=== PATIENT | female | born 1995 | race Caucasian/White ===

== ENCOUNTER 2019-08-30 20:17 | Emergency (ER) | payer OTHER ==
[2019-08-30] MEDS ORDERED: Ondansetron INJ* 2 MG/ML VIAL IV ONE (20:47)
[2019-08-30] MEDS ORDERED: NS 0.9% 1000 ML** 2,000 ML IV ONE (20:47)
[2019-08-30] MEDS ORDERED: Acetaminophen TAB* 325 MG PO ONE (20:49)
--- NOTE | 2019-08-30 21:13 | ED ---
Syncope/Near Syncope - HPI Summary HPI Summary: Pt is a 24 y/o F presenting to the ED with a chief complaint of syncope. She states she has been having N/V/D (about 10 emesis episodes, 5 diarrhea episodes ) ever since she woke up this morning, accompanied by a high fever at one point. She had a syncopal episode, woke up, continued vomiting, then went to urgent care where she syncopized again. Pt denies any chills, erythema of eyes, sore throat, CP, SOB, cough, abdominal pain, blood in stool or vomit, dysuria, hematuria, myalgia, edema, rash, or dizziness. Hx GERD, gastritis, PCOS, Raynauds. - History Of Current Complaint Chief Complaint: EDSyncope Time Seen by Provider: 08/30/19 20:30 Hx Obtained From: Patient Onset/Duration: Sudden Onset, Lasting Minutes, Resolved Timing: Minutes Context: Unwitnessed, Witnessed, Loss Of Consciousness Activity At Onset: Other - vomiting Associated Head Trauma: No Aggravating Factor(s): Nothing Alleviating Factor(s): Nothing Associated Signs And Symptoms: Diarrhea, Vomiting - Allergies/Home Medications Allergies/Adverse Reactions: Allergies Allergy/AdvReac Type Severity Reaction Status Date / Time acetaminophen [From Vicodin] Allergy Itching Verified 08/30/19 21:27 cefprozil [From Cefzil] Allergy Hives/Diff. Verified 08/30/19 21:27 Breathing/I tching hydrocodone [From Vicodin] Allergy Itching Verified 08/30/19 21:27 Home Medications: Home Medications Tegretol 300 mg PO TID 08/30/19 [History Confirmed 08/30/19] PMH/Surg Hx/FS Hx/Imm Hx Previously Healthy: Yes Endocrine/Hematology History: Reports: Other Endocrine/Hematological Disorders - Raynaud's GI History: Reports: Hx Gastroesophageal Reflux Disease, Other GI Disorders - gastritis History: Reports: Other Problems/Disorders - PCOS Infectious Disease History: No Infectious Disease History: Denies: Traveled Outside the [place] in Last 30 Days - Family History Known Family History: Negative: Diabetes - Social History Occupation: Student Alcohol Use: Occasionally Hx Substance Use: No Substance Use Type: Reports: None Hx Tobacco Use: No Smoking Status (MU): Never Smoked Tobacco Review of Systems Positive: Fever. Negative: Chills Negative: Erythema Negative: Sore Throat Negative: Chest Pain Negative: Shortness Of Breath, Cough Positive: Vomiting, Diarrhea, Nausea. Negative: Abdominal Pain Negative: dysuria, hematuria Negative: Myalgia, Edema Negative: Rash Neurological: Negative - dizziness Positive: Syncope All Other Systems Reviewed And Are Negative: Yes Physical Exam - Summary Physical Exam Summary: Constitutional: Well-developed, Well-nourished, Alert. (-) Distressed Skin: Warm, Dry HENT: Normocephalic; Atraumatic Eyes: Conjunctiva normal Neck: Musculoskeletal ROM normal neck. (-) JVD, (-) Stridor, (-) Tracheal deviation Cardio: Rhythm regular, rate 102bpm, Heart sounds normal; Intact distal pulses; The pedal pulses are 2+ and symmetric. Radial pulses are 2+ and symmetric. (-) Murmur Pulmonary/Chest wall: Effort normal. (-) Respiratory distress, (-) Wheezes, (-) Rales Abd: Soft, (-) tenderness, (-) Distension, (-) Guarding, (-) Rebound Musculoskeletal: (-) Edema Lymph: (-) Cervical adenopathy Neuro: Alert, Oriented x3 Psych: Mood and affect Normal Triage Information Reviewed: Yes Vital Signs On Initial Exam: Initial Vitals Temp Pulse Resp BP Pulse Ox 99.9 F 100 16 102/55 99 08/30/19 20:21 08/30/19 20:21 08/30/19 20:21 08/30/19 20:21 08/30/19 20:21 Vital Signs Reviewed: Yes Procedures - Sedation Patient Received Moderate/Deep Sedation with Procedure: No Diagnostics - Vital Signs Vital Signs Temp Pulse Resp BP Pulse Ox 08/30/19 20:46 95 16 102/70 99 08/30/19 20:44 30 08/30/19 20:21 99.9 F 100 16 102/55 99 - Laboratory Result Diagrams: 08/30/19 21:20 08/30/19 21:20 Lab Statement: Any lab studies that have been ordered have been reviewed, and results considered in the medical decision making process. - EKG 2109 Cardiac Rate: NL - 91bpm EKG Rhythm: Sinus Rhythm ST Segment: Normal Ectopy: None Summary of EKG Findings: EKG at 2109 shows NSR at 91bpm with no STEMI. Dr. Fernandez has reviewed and interpreted this EKG. Course/Dx Course Of Treatment: Pt is a 24 y/o F presenting to the ED with a chief complaint of syncope. She reports n/v/d all day causing two episodes of syncope. Pt denies any chills, erythema of eyes, sore throat, CP, SOB, cough, abdominal pain, blood in stool or vomit, dysuria, hematuria, myalgia, edema, rash, or dizziness. Physical exam shows HR of 102bpm. 2143 - Pt wants to eat/ drink. EKG at 2109 shows NSR at 91bpm with no STEMI. Dr. Fernandez has reviewed and interpreted this EKG. I suspect her syncope was related to dehydration/ vagal response to vomiting. As of now, she is tolerating PO intake, her labs are normal, and her vitals are stable. She is able to be d/c'ed with dx of syncope, gastroenteritis, and dehydration. She will f/u with [facility] within the next 2 days. On d/c, HR 105bpm, temperature 100.2 F. - Diagnoses Provider Diagnoses: Syncope, Dehydration, Gastroenteritis Discharge ED - Sign-Out/Discharge Documenting (check all that apply): Patient Departure - Discharge Plan Condition: Stable Disposition: HOME Patient Education Materials: Gastroenteritis (ED), Dehydration (ED), Syncope ( ED) Referrals: [facility] [Outside] Additional Instructions: Follow up with [facility] in the next 2 days. Try to eat things that won't be too hard on your stomach, like jello or broth. - Attestation Statements Document Initiated by Scribe: Yes Documenting Scribe: Shahla Ricks Provider For Whom Partha is Documenting (Include Credential): Petar Fernandez MD. Scribe Attestation: Shahla Valencia, scribed for Petar Fernandez MD. on 08/30/19 at 2147. Status of Scribe Document: Ready
[2019-08-30 21:27] LABS: ABS Lymphocytes 0.4 10^3/ul (1.0-4.8); ABS Monocytes 0.6 10^3/ul (0-0.8); Eosinophil % 0.1 %; Hematocrit 45 % (35-47); Hemoglobin 15.7 g/dL (12.0-16.0); Mean Corpuscular HGB Conc 35 g/dL (31-36); Mean Corpuscular Hemoglobin 32 pg (27-31); Mean Corpuscular Volume 93 fL (80-97); Mean Platelet Volume 7.7 fL (7.4-10.4); Platelet Count 173 10^3/uL (150-450); Red Blood Count 4.89 10^6 /uL (3.70-4.87); Red Cell Distribution Width 13 % (10-15); White Blood Count 10.1 10^3/uL (3.5-10.8)
[2019-08-30 21:44] LABS: Albumin 4.2 g/dL (3.2-5.2); Albumin/Globulin Ratio 2.1 (1-3); BUN/Creatinine Ratio 22.6 (8-20); Calcium 8.7 mg/dL (8.6-10.3); EGFR Non-African American 82.6 (>60); Magnesium 1.9 mg/dL (1.9-2.7); Total Bilirubin 0.7 mg/dL (0.2-1.0); Total Protein 6.2 g/dL (6.4-8.9)
[2019-08-30] MEDS ORDERED: O ndansetron ODT 4MG 5TAB PRPK 4 MG PAK PO ONE (21:46)
[2019-08-30] MEDS ORDERED: Ibuprofen TAB* 400 MG PO ONE (21:50)
[2019-08-30 22:06] LABS: TSH (Thyroid Stimulating Horm) 0.72 mcIU/mL (0.34-5.60)
[2019-08-31 00:06] VITALS: BP 0/0
== END 2019-08-30 22:55 | disposition home or self-care (01) ==
LOC: ED 20:17
DX: K52.9 Noninfective gastroenteritis and colitis, unspecified (principal); E86.0 Dehydration; R55 Syncope and collapse; Z88.6 Allergy status to analgesic agent; Z88.1 Allergy status to other antibiotic agents; Z88.5 Allergy status to narcotic agent
CPT/HCPCS: 36415; 80053; 83605; 83735; 84443; 84484; 85025; 93005; 96361; 96374; 99282; A9270-GY; J2405